=== PATIENT | female | born 1930 | race African-American/Black ===

== ENCOUNTER 2018-07-03 13:09 | Emergency (ER) | payer OTHER ==
[~2018-07-03] VITALS: Ht 165.1 cm; Wt 86.4 kg
[2018-07-03] MEDS ORDERED: IOVERSOL 350 MG/ML 150 ML VIAL ONE (13:18)
[2018-07-03] MEDS ORDERED: SODIUM CHLORIDE 0.9% 100 ML ONE (13:18)
[2018-07-03] MEDS ORDERED: SENN-175 PO (13:26)
[2018-07-03] MEDS ORDERED: BISA10S PR (13:26)
[2018-07-03] MEDS ORDERED: GUAI600T30 PO (13:26)
[2018-07-03] MEDS ORDERED: MULT-248 PO (13:26)
[2018-07-03] MEDS ORDERED: GLIP10 PO (13:26)
[2018-07-03] MEDS ORDERED: GLIP5 PO (13:26)
[2018-07-03] MEDS ORDERED: INSREG SQ (13:26)
[2018-07-03] MEDS ORDERED: VITAD1000 PO (13:26)
[2018-07-03] MEDS ORDERED: METF500T6 PO (13:26)
[2018-07-03] MEDS ORDERED: CALC-23 PO (13:26)
[2018-07-03] MEDS ORDERED: LISI-660 PO (13:26)
[2018-07-03] MEDS ORDERED: INSLAN SQ (13:26)
[2018-07-03] MEDS ORDERED: VENL-67 PO (13:26)
[2018-07-03] MEDS ORDERED: ASCO500 PO (13:26)
[2018-07-03] MEDS ORDERED: ASPI81 PO (13:26)
[2018-07-03] MEDS ORDERED: MOM30 PO (13:26)
[2018-07-03] MEDS ORDERED: BACL10TA PO (13:26)
[2018-07-03] MEDS ORDERED: ACET-784 PO (13:26)
[2018-07-03] MEDS ORDERED: ARGI1POW13 PO (13:26)
[2018-07-03] MEDS ORDERED: FURO40 PO (13:26)
[2018-07-03] MEDS ORDERED: [UNRECOGNIZED DRUG - CODE] MC (13:26)
[2018-07-03] MEDS ORDERED: ZINC220 PO (13:26)
[2018-07-03] MEDS ORDERED: FAMO20 PO (13:26)
[2018-07-03] MEDS ORDERED: SIMV-259 PO (13:26)
[2018-07-03] MEDS ORDERED: FE PR (13:26)
[2018-07-03 13:36] LABS: BASOPHILS % (AUTO) 0.5 % (0.0-2.0); EOSINOPHILS % (AUTO) 5.7 % (1.0-6.0); HEMATOCRIT 39.2 % (36-46); HEMOGLOBIN 12.6 g/dL (12.0-16.0); LYMPHOCYTES # (AUTO) 2.7 K/uL (1.0-4.8); LYMPHOCYTES % (AUTO) 26.5 % (22.0-44.0); MEAN CORPUSCULAR HEMOGLOBIN 27.6 pg (26.0-34.0); MEAN CORPUSCULAR HGB CONC 32.2 G/dL (31.0-37.0); MEAN CORPUSCULAR VOLUME 86 fL (80-100); MONOCYTES # (AUTO) 0.8 K/uL (0.1-1.0); MONOCYTES % (AUTO) 7.8 % (2.0-9.0); NEUTROPHILS # (AUTO) 6.1 K/uL (1.8-7.7); NEUTROPHILS % (AUTO) 59.5 % (40.0-70.0); PLATELET COUNT (AUTO) 316 K/uL (150-450); RED BLOOD CELL COUNT(AUTO) 4.56 MIL/uL (4.00-5.20); RED CELL DISTRIBUTION WIDTH 15.7 % (11.5-14.5)
[2018-07-03 13:49] LABS: INR 1.1 (0.9-1.1)
[2018-07-03 13:50] LABS: CREATININE 2.1 mg/dL (0.60-1.30); POTASSIUM 3.5 mmol/L (3.5-5.1)
[2018-07-03 13:56] LABS: ALBUMIN 3.1 g/dL (3.4-5.0); BILIRUBIN,TOTAL 0.2 mg/dL (0.1-1.0); TOTAL PROTEIN, SERUM 7.4 g/dL (6.4-8.2)
[2018-07-03 20:00] VITALS: BP 111/57
== END 2018-07-03 21:18 | disposition short-term general hospital (02) ==
LOC: EDSEX 13:10 → EMS 13:10
DX: G93.40 Encephalopathy, unspecified (principal); R56.9 Unspecified convulsions; N28.9 Disorder of kidney and ureter, unspecified; R79.1 Abnormal coagulation profile; Z88.8 Allergy status to other drugs, medicaments and biological substances
CPT/HCPCS: 70450; 70496; 71045; 80053; 81002; 82962; 83605; 84484; 85025; 85610; 85730; 87040; 93005; 99291; J7050; Q9967